=== PATIENT | male | born 2000 | race Two or more races ===

== ENCOUNTER 2020-03-22 21:34 | Emergency (ER) | payer OTHER ==
[~2020-03-22] VITALS: Ht 182.9 cm; Wt 101.6 kg
[2020-03-22 21:35] VITALS: BP 129/92
--- NOTE | 2020-03-22 22:33 | NUR ---
Patient discharged to home in stable condition. Written and verbal after care instructions given. Patient verbalizes understanding of instruction.
== END 2020-03-22 22:33 | disposition home or self-care (01) ==
LOC: ER 21:36
DX: R07.81 Pleurodynia (principal); R10.11 Right upper quadrant pain